=== PATIENT | female | born 1990 | race Two or more races ===

== ENCOUNTER 2019-03-12 08:34 | Day surgery (SDC) | payer OTHER | END 2019-03-12 14:20 | disposition home or self-care (01) | LOC: AMB-ENDOS 08:34 | DX: K52.89 Other specified noninfective gastroenteritis and colitis (principal) ==

== ENCOUNTER 2023-03-28 03:57 | Emergency (ER) | payer OTHER ==
[~2023-03-28] VITALS: Ht 165.1 cm; Wt 81.2 kg
== END 2023-03-28 10:21 | disposition home or self-care (01) ==
LOC: ER 03:57
PROVIDERS: General Practice
DX: O20.8 Other hemorrhage in early pregnancy (principal); Z3A.22 22 weeks gestation of pregnancy; E03.8 Other specified hypothyroidism; Z88.0 Allergy status to penicillin

== ENCOUNTER 2023-06-26 18:38 | Outpatient (CLI) | payer OTHER | END 2023-06-26 19:13 | disposition home or self-care (01) | LOC: NST 18:38 | PROVIDERS: ATTEND Obstetrics & Gynecology Maternal & Fetal Medicine | DX: Z34.82 Encounter for supervision of other normal pregnancy, second trimester (principal) ==

== ENCOUNTER 2023-07-29 15:41 | Outpatient (CLI) | payer OTHER | END 2023-07-29 16:12 | disposition home or self-care (01) | LOC: NST 15:41 | PROVIDERS: ATTEND Obstetrics & Gynecology | DX: Z34.83 Encounter for supervision of other normal pregnancy, third trimester (principal) ==

== ENCOUNTER 2023-08-16 10:02 | Outpatient (CLI) | payer OTHER | END 2023-08-16 10:35 | disposition home or self-care (01) | LOC: NST 10:02 | PROVIDERS: ATTEND Obstetrics & Gynecology Gynecology | DX: Z34.83 Encounter for supervision of other normal pregnancy, third trimester (principal) ==

== ENCOUNTER 2023-08-23 21:39 | Outpatient (CLI) | payer OTHER ==
[2023-08-23] MEDS ORDERED: SYNTHROID75 MCG PO (21:55)
[2023-08-23] MEDS ORDERED: PRENATAL CAPLE1 EAC1 PO (21:56)
== END 2023-08-24 10:19 | disposition home or self-care (01) ==
LOC: OBS/DEL 21:39
PROVIDERS: ATTEND Obstetrics & Gynecology
DX: O98.813 Other maternal infectious and parasitic diseases complicating pregnancy, third trimester (principal); B37.9 Candidiasis, unspecified; Z3A.35 35 weeks gestation of pregnancy

== ENCOUNTER 2023-09-10 13:30 | Inpatient (IN) | payer OTHER ==
[~2023-09-10] VITALS: Ht 167.6 cm; Wt 3.2 kg
[~2023-09-10 13:30] MED LIST: PRENATAL CAPLE1 EAC1 PO; SYNTHROID75 MCG PO
[2023-10-01 14:17] LABS: HEMOGLOBIN 11.2 g/dL (12.0-15.00); MEAN CELL VOLUME 79.2 fL (80.00-100.00); MEAN CORPUSCULAR HEMOGLOBIN 26.2 pg (27.00-32.0); PLATELET COUNT 177 K/uL (150-450); RED BLOOD COUNT 4.29 M/uL (4.00-6.00)
[2023-10-01 14:37] LABS: PH,URINE 6.5 (5.0-8.0); URINE APPEARANCE Clear; URINE BILIRRUBIN Negative (NEGATIVE); URINE BLOOD Negative; URINE COLOR Yellow; URINE GLUCOSE Negative (NEGATIVE); URINE LEUKOCYTE Trace; URINE NITRATE Negative; URINE PROTEIN Negative (NEGATIVE); URINE UROBILINOGEN 0.2 E.U./dl
[2023-10-01 14:42] LABS: URINE BACTERIA 2794.3 uL (0.0-1933); URINE EPITHELIAL CELLS 24.5 uL (0.0-38.8); URINE RBC 2.8 uL (0.0-20.8); URINE WBC 44.8 uL (0.0-23.2)
[2023-10-01 14:43] LABS: INR < 0.93; PARTIAL THROMBOPLASTIN TIME 27.4 SECONDS (22.0-34.0); PROTHROMBIN TIME 9.4 SECONDS (9.0-11.5)
[2023-10-01 14:51] LABS: ALBUMIN 2.6 gm/dL (3.4-5.0); BILIRUBIN TOTAL 0.72 mg/dL (0.3-1.2); CALCIUM 8.7 mg/dL (8.5-10.1); CREATININE SERUM 0.78 mg/dL (0.55-1.02); GFR 84.54; GLOBULINA 3.3 G/DL (2.4-3.5); POTASSIUM 4.15 mEq/L (3.5-5.1); TOTAL PROTEIN 5.9 gm/dL (6.4-8.2)
[2023-10-01] MEDS ORDERED: MORPHINE SULFATE 4 MG/ML CARTRIDGE IV PRN (15:00)
[2023-10-01] MEDS ORDERED: MISOPROSTOL 25 MCG TABLET VAG ONE (17:00)
[2023-10-02] MEDS ORDERED: LEVOTHYROXINE SODIUM 175 MCG TABLET PO SCH (06:00)
[2023-10-02] MEDS ORDERED: OXYTOCIN 20 UNITS/500ML RL PIGGYBAG IV ONE (07:55)
[2023-10-02] MEDS ORDERED: OXYTOCIN 500 ML IV ONE (08:00)
[2023-10-02] MEDS ORDERED: CEFAZOLIN SODIUM 1,000 MG VIAL IV SCH (11:00)
[2023-10-02] MEDS ORDERED: ERYTHROMYCIN BASE 3.5 GM OINT...G. OP ONE (12:05)
[2023-10-02] MEDS ORDERED: OXYTOCIN 10 UNITS/ML VIAL ONE ×2 (12:05→19:51)
[2023-10-02] MEDS ORDERED: ACETAMINOPHEN 500 MG GEL..CAP PO PRN (13:45)
[2023-10-02] MEDS ORDERED: OXYTOCIN 1,000 ML IV SCH (13:45)
[2023-10-02] MEDS ORDERED: MORPHINE SULFATE 4 MG/ML CARTRIDGE IV PRN (13:45)
[2023-10-02] MEDS ORDERED: ONDANSETRON HCL 2 MG/ML VIAL IV PRN (13:45)
[2023-10-02] MEDS ORDERED: RINGERS SOLUTION,LACTATED 1,000 ML IV SCH (13:45)
[2023-10-02] MEDS ORDERED: OXYTOCIN 10 UNITS/ML VIAL IV ONE (14:15)
[2023-10-02] MEDS ORDERED: ERYTHROMYCIN BASE 1 GM TUBE OP ONE (14:15)
[2023-10-02 14:45] LABS: ABG PH 7.281 (7.35-7.45); BASE EXCESS -3.8 mmol/l; BICARBONATE 23.5 mmol/l (23-25); SaO2 13.3 %; o2 21 %
[2023-10-02] MEDS ORDERED: ONDANSETRON HCL 2 MG/ML VIAL ONE (16:04)
[2023-10-02] MEDS ORDERED: ONDANSETRON HCL 2 MG/ML VIAL IV ONE (16:05)
[2023-10-02] MEDS ORDERED: MORPHINE SULFATE 4 MG/ML VIAL IV ONE (16:05)
[2023-10-03] MEDS ORDERED: SIMETHICONE 125 MG CAPSULE PO SCH (01:00)
[2023-10-03 06:57] LABS: HEMATOCRIT 33.8 % (36.0-45.00); HEMOGLOBIN 11.1 g/dL (12.0-15.00); MEAN CELL VOLUME 80.1 fL (80.00-100.00); MEAN CORPUSCULAR HEMOGLOBIN 26.5 pg (27.00-32.0); PLATELET COUNT 147 K/uL (150-450); RED BLOOD COUNT 4.21 M/uL (4.00-6.00); RED CELL DISTRIBUTION WIDTH 15.3 % (11.5-14.5)
[2023-10-03] MEDS ORDERED: FF) RHO(D) IMMUNE GLOBULIN (POM) IM ONE (08:15)
[2023-10-03] MEDS ORDERED: DOCUSATE CALCIUM 240 MG CAPSULE PO SCH (09:00)
[2023-10-03] MEDS ORDERED: GABAPENTIN 300 MG CAPSULE PO SCH (09:00)
[2023-10-03 13:42] LABS: T4 FREE 1.58 NG/ML (0.76-1.46); TSH 9.42 uIU/mL (0.358-3.74)
[2023-10-04] MEDS ORDERED: hydrOXYzine PAMOATE 25 MG CAPSULE PO ONE (01:30)
[2023-10-04] MEDS ORDERED: LABETALOL HCL 200 MG TABLET PO SCH (09:00)
[2023-10-04 17:39] LABS: HEMATOCRIT 32.3 % (36.0-45.00); HEMOGLOBIN 10.5 g/dL (12.0-15.00); MEAN CELL VOLUME 80.4 fL (80.00-100.00); MEAN CORPUSCULAR HEMOGLOBIN 26.2 pg (27.00-32.0); MEAN CORPUSCULAR HGB CONC 32.6 g/dl (32.0-36.0); PLATELET COUNT 195 K/uL (150-450); RED BLOOD COUNT 4.01 M/uL (4.00-6.00); RED CELL DISTRIBUTION WIDTH 16.1 % (11.5-14.5)
[2023-10-04 18:02] LABS: ALBUMIN 2.5 gm/dL (3.4-5.0); BILIRUBIN TOTAL 0.73 mg/dL (0.3-1.2); CALCIUM 8.6 mg/dL (8.5-10.1); CREATININE SERUM 0.8 mg/dL (0.55-1.02); GFR 82.11; GLOBULINA 3.5 G/DL (2.4-3.5); POTASSIUM 4.11 mEq/L (3.5-5.1)
[2023-10-04 19:59] LABS: URINE APPEARANCE Clear; URINE BILIRRUBIN Negative (NEGATIVE); URINE BLOOD Small; URINE COLOR Yellow; URINE GLUCOSE Negative (NEGATIVE); URINE LEUKOCYTE Negative; URINE NITRATE Negative; URINE PROTEIN Negative (NEGATIVE); URINE UROBILINOGEN 0.2 E.U./dl
[2023-10-04 20:02] LABS: URINE BACTERIA 45.3 uL (0.0-1933); URINE EPITHELIAL CELLS 10.9 uL (0.0-38.8); URINE RBC 47.5 uL (0.0-20.8); URINE WBC 10.8 uL (0.0-23.2)
== END 2023-10-05 15:43 | disposition home or self-care (01) | DRG 788 ==
LOC: OB/GYN 09-22 13:30 → LDR 10-01 12:55 → O/R 10-02 13:00 → OB/GYN 10-02 13:54
PROVIDERS: Obstetrics & Gynecology; Obstetrics & Gynecology Gynecology; ADMIT Obstetrics & Gynecology Maternal & Fetal Medicine; ATTEND Obstetrics & Gynecology Maternal & Fetal Medicine
PROC: 4A1HXCZ Monitoring of Products of Conception, Cardiac Rate, External Approach (ICD-10-PCS; 2023-10-01)
PROC: 3E033VJ Introduction of Other Hormone into Peripheral Vein, Percutaneous Approach (ICD-10-PCS; 2023-10-02)
PROC: 3E0P7VZ Introduction of Hormone into Female Reproductive, Via Natural or Artificial Opening (ICD-10-PCS; 2023-10-02)
PROC: 10D00Z1 Extraction of Products of Conception, Low, Open Approach (ICD-10-PCS; principal; 2023-10-02 12:15)
DX: O77.8 Labor and delivery complicated by other evidence of fetal stress (principal); O62.0 Primary inadequate contractions; O48.0 Post-term pregnancy; Z3A.41 41 weeks gestation of pregnancy; Z37.0 Single live birth; Z20.822 Contact with and (suspected) exposure to COVID-19

== ENCOUNTER 2023-09-23 15:54 | Outpatient (CLI) | payer OTHER | END 2023-09-23 16:44 | disposition home or self-care (01) | LOC: NST 15:54 | PROVIDERS: ATTEND Obstetrics & Gynecology Maternal & Fetal Medicine | DX: Z34.83 Encounter for supervision of other normal pregnancy, third trimester (principal) ==

== ENCOUNTER 2023-09-26 09:04 | Outpatient (CLI) | payer OTHER | END 2023-09-26 09:47 | disposition home or self-care (01) | LOC: NST 09:04 | PROVIDERS: ATTEND Obstetrics & Gynecology Maternal & Fetal Medicine | DX: Z34.83 Encounter for supervision of other normal pregnancy, third trimester (principal) ==

== ENCOUNTER 2023-09-30 08:37 | Outpatient (CLI) | payer OTHER | END 2023-09-30 09:23 | disposition home or self-care (01) | LOC: NST 08:37 | PROVIDERS: ATTEND Obstetrics & Gynecology Maternal & Fetal Medicine | DX: Z34.83 Encounter for supervision of other normal pregnancy, third trimester (principal) ==